=== PATIENT | female | born 1985 | race Caucasian/White ===

== ENCOUNTER 2023-04-18 20:24 | Emergency (ER) | payer SELFPAY ==
[~2023-04-18] VITALS: Ht 162.6 cm; Wt 68.0 kg
[2023-04-18 20:50] VITALS: BP 110/65; PULSE 86; RESP 17; TEMP 98.5; O2SAT 97
[2023-04-18] MEDS ORDERED: MORPHINE SULFATE 4 MG/ML SYR IM ONE (23:40)
[2023-04-19] MEDS ORDERED: NAPR-54 PO (00:18)
[2023-04-19] MEDS ORDERED: ACET-5629 PO (00:18)
[2023-04-19 00:30] VITALS: BP 110/65; PULSE 86; RESP 17; TEMP 98.5; O2SAT 97
== END 2023-04-19 00:30 | disposition home or self-care (01) ==
LOC: MED 20:24
DX: S52.592A Other fractures of lower end of left radius, initial encounter for closed fracture (principal); W18.30XA Fall on same level, unspecified, initial encounter; Y93.89 Activity, other specified; Y92.89 Other specified places as the place of occurrence of the external cause; Y99.8 Other external cause status
CPT/HCPCS: 29125; 73100; 96372; 99283; J2270